=== PATIENT | female | born 1930 | race Caucasian/White ===

== ENCOUNTER 2019-05-29 04:07 | Emergency (ER) | payer OTHER ==
[~2019-05-29] VITALS: Ht 149.9 cm; Wt 49.9 kg
--- NOTE | 2019-05-29 04:47 | NUR ---
PT CAME TO ER BED BED 11 C/O BEING ANXIOUS. PT STATES, "I HAVE HIGH BLOOD PRESSURE, AND I AM ANXIOUS." AAOX4. NO SOB. BREATHING EVENLY AND UNLABORED ON ROOM AIR. CONNECTED TO MONITOR.
[2019-05-29 04:49] LABS: BASOPHILS % (AUTO) 0.5 % (0.0-2.0); EOSINOPHILS % (AUTO) 1.1 % (0.0-6.0); HEMATOCRIT 37 % (33-45); HEMOGLOBIN 12.3 g/dL (11.5-14.8); LYMPHOCYTES # (AUTO) 2.9 /CMM (0.8-4.8); LYMPHOCYTES % (AUTO) 29.5 % (20.0-44.0); MEAN CORPUSCULAR HGB CONC 33 g/dl (31.0-36.0); MEAN CORPUSCULAR VOLUME 88 fL (82-100); MONOCYTES # (AUTO) 0.7 /CMM (0.1-1.30); MONOCYTES % (AUTO) 6.7 % (2.0-12.0); NEUTROPHILS # (AUTO) 6.2 /CMM (1.8-8.9); NEUTROPHILS % (AUTO) 62.2 % (43.0-81.0); PLATELET COUNT (AUTO) 247 /CMM (150-450); RED BLOOD CELL COUNT(AUTO) 4.24 MIL/uL (4.0-5.2); WHITE BLOOD COUNT (AUTO) 9.9 K/uL (4.3-11.0)
[2019-05-29 04:58] LABS: CALCIUM, SERUM 9.5 mg/dL (8.5-10.1); CARBON DIOXIDE 31 mmol/L (21-32); CHLORIDE 103 mmol/L (98-107); GLUCOSE 133 mg/dL (74-106); POTASSIUM 4.6 mmol/L (3.5-5.1); SODIUM SERUM 139 mmol/L (136-145); UREA NITROGEN, BLOOD 21 mg/dL (7-18)
[2019-05-29] MEDS ORDERED: LORAZEPAM 0.5 MG TABLET ONE ×2 (05:15→06:08)
[2019-05-29] MEDS: LORAZEPAM 0.5 MG TABLET PO ONE (05:18)
--- NOTE | 2019-05-29 05:18 | NUR ---
XRAY AT BEDSIDE
[2019-05-29] MEDS: LORAZEPAM INJ 2 MG/ML VIAL IV ONE (06:18)
--- NOTE | 2019-05-29 06:18 | NUR ---
Patient discharged to home in stable condition. Written and verbal after care instructions given. Patient verbalizes understanding of instruction.
[2019-05-29 06:19] VITALS: BP 145/73
--- NOTE | 2019-05-29 06:19 | NUR ---
Patient is ambulatory with a steady gait. Called taxi for patient to go home.
== END 2019-05-29 06:20 | disposition home or self-care (01) ==
LOC: ER 04:10
DX: F41.0 Panic disorder [episodic paroxysmal anxiety] (principal); J45.909 Unspecified asthma, uncomplicated; I10 Essential (primary) hypertension; E03.9 Hypothyroidism, unspecified
CPT/HCPCS: 36415; 71045-TC; 80048-TC; 84484-TC; 85025-TC